=== PATIENT | female | born 1955 | race Two or more races ===

== ENCOUNTER → 2022-04-13 | Outpatient (CLI) | payer OTHER ==
[2022-04-13 12:47] LABS: Hematocrit 37.1 % (36.0-46.0); Hemoglobin 12.5 g/dL (12.2-16.2); Mean Corpuscular Hemoglobin 29.7 pg (28.0-32.0); Mean Corpuscular Hgb Conc. 33.6 g/dL (32.0-36.0); Mean Corpuscular Volume 88.2 fL (80.0-100.0); Red Cell Distribution Width 13.1 % (11.8-14.3)
[2022-04-13 12:56] LABS: Band Neutrophils % (manual) 0; Basophils % (manual) 0 (0.0-2.0); Blast Cells 0; Metamyelocytes % 0; Myelocytes % 0; Promyelocytes % 0; Reactive Lymphocytes 0
[2022-04-13 13:14] LABS: Albumin 3.6 g/dL (3.4-5.0); BUN/Creatinine Ratio 8.2; Calcium 9.1 mg/dL (8.5-10.1); Potassium 3.9 mmol/L (3.5-5.1)
[2022-04-13 13:17] LABS: Bilirubin, Total 0.3 mg/dL (0.2-1.0); Total Protein 7.6 g/dL (6.4-8.2)
[2022-04-13 14:37] LABS: Eosinophils % (manual) 1 (0-7); Lymphocytes % (manual) 77 (10.0-50.0); Monocytes % (manual) 6 (0-12)
== END | disposition home or self-care (01) ==
LOC: LAB 12:30
PROVIDERS: ATTEND Internal Medicine
DX: R10.0 Acute abdomen (principal)
CPT/HCPCS: 36415; 80053; 85007; 85027

== ENCOUNTER → 2022-04-20 | Outpatient (CLI) | payer OTHER ==
[2022-04-20 15:13] LABS: Cholesterol 231 mg/dL (< 200); HDL Cholesterol 47 mg/dL (40-59); LDL Cholesterol 163 mg/dL (< 100); Triglycerides 126 mg/dL (< 150)
== END | disposition home or self-care (01) ==
LOC: LAB 14:21
PROVIDERS: ATTEND Internal Medicine
DX: I10 Essential (primary) hypertension (principal)
CPT/HCPCS: 36415; 80061; 83036; 84439; 84443

== ENCOUNTER 2022-04-26 09:50 | Emergency (ER) | payer OTHER, MEDICAID ==
[~2022-04-26] VITALS: Ht 167.6 cm; Wt 60.0 kg
[2022-04-26 10:57] LABS: Hematocrit 37.5 % (36.0-46.0); Hemoglobin 12.7 g/dL (12.2-16.2); Mean Corpuscular Hemoglobin 30.2 pg (28.0-32.0); Mean Corpuscular Hgb Conc. 33.9 g/dL (32.0-36.0); Mean Corpuscular Volume 88.9 fL (80.0-100.0); Red Blood Cells 4.22 10^6/uL (4.0-5.20); Red Cell Distribution Width 13.6 % (11.8-14.3); White Blood Cell 4.6 10^3/uL (4.4-10.8)
[2022-04-26 11:02] LABS: Band Neutrophils % (manual) 0; Basophils % (manual) 0 (0.0-2.0); Blast Cells 0; Metamyelocytes % 0; Myelocytes % 0; Promyelocytes % 0; Reactive Lymphocytes 0
[2022-04-26 11:10] LABS: Albumin 3.6 g/dL (3.4-5.0); BUN/Creatinine Ratio 6.3; Calcium 9.5 mg/dL (8.5-10.1); Potassium 3.8 mmol/L (3.5-5.1)
[2022-04-26 11:13] LABS: Bilirubin, Total 0.3 mg/dL (0.2-1.0); Total Protein 8.1 g/dL (6.4-8.2)
[2022-04-26 12:19] LABS: Eosinophils % (manual) 2 (0-7); Lymphocytes % (manual) 65 (10.0-50.0); Monocytes % (manual) 3 (0-12)
[2022-04-26 17:08] VITALS: BP 178/76
[2022-04-26 17:39] LABS: Urine Bacteria FEW /hpf (None Seen); Urine Blood Negative /uL (Negative); Urine Hyaline Cast FEW /lpf (0 - 2); Urine Mucus FEW (None Seen); Urine Specific Gravity 1.023 (1.001-1.035); Urine WBC 6 /hpf (0 - 5)
== END 2022-04-26 17:10 | disposition home or self-care (01) ==
LOC: ER 09:50
DX: R10.31 Right lower quadrant pain (principal); I13.10 Hypertensive heart and chronic kidney disease without heart failure, with stage 1 through stage 4 chronic kidney disease, or unspecified chronic kidney disease; N18.30 Chronic kidney disease, stage 3 unspecified; Z88.6 Allergy status to analgesic agent; Z86.73 Personal history of transient ischemic attack (TIA), and cerebral infarction without residual deficits; Z98.51 Tubal ligation status
CPT/HCPCS: 36415; 74176; 80053; 81001; 85007; 85027

== ENCOUNTER → 2022-06-11 | Outpatient (CLI) | payer OTHER, MEDICAID ==
[~2022-06-11] MED LIST: NITR-87 PO; PERCOT PO
[2022-06-11 12:45] LABS: Calcium 9.7 mg/dL (8.5-10.1); Potassium 3.7 mmol/L (3.5-5.1)
[2022-06-11 12:47] LABS: BUN/Creatinine Ratio 6.8 (10.0-20.0)
[2022-06-11 12:50] LABS: Bilirubin, Total 0.5 mg/dL (0.2-1.0); Total Protein 8.3 g/dL (6.4-8.2)
== END | disposition home or self-care (01) ==
LOC: LAB 10:18
PROVIDERS: ATTEND Internal Medicine
DX: R94.4 Abnormal results of kidney function studies (principal); R94.6 Abnormal results of thyroid function studies
CPT/HCPCS: 36415; 80053; 84439; 84443

== ENCOUNTER 2022-06-13 15:52 | Emergency (ER) | payer OTHER, MEDICAID ==
[~2022-06-13] VITALS: Ht 167.6 cm; Wt 63.6 kg
[2022-06-13 18:12] LABS: Hematocrit 39.4 % (36.0-46.0); Hemoglobin 13.7 g/dL (12.2-16.2); Mean Corpuscular Hemoglobin 30.5 pg (28.0-32.0); Mean Corpuscular Hgb Conc. 34.7 g/dL (32.0-36.0); Mean Corpuscular Volume 87.8 fL (80.0-100.0); Red Blood Cells 4.49 10^6/uL (4.0-5.20); Red Cell Distribution Width 13.9 % (11.8-14.3); White Blood Cell 5.1 10^3/uL (4.4-10.8)
[2022-06-13 18:29] LABS: Band Neutrophils % (manual) 0; Basophils % (manual) 0 (0.0-2.0); Blast Cells 0; Metamyelocytes % 0; Myelocytes % 0; Promyelocytes % 0
[2022-06-13 18:30] LABS: Albumin 4.1 g/dL (3.4-5.0); Calcium 9.4 mg/dL (8.5-10.1); Potassium 3.7 mmol/L (3.5-5.1)
[2022-06-13 18:34] LABS: BUN/Creatinine Ratio 7.8 (10.0-20.0); Bilirubin, Total 0.5 mg/dL (0.2-1.0)
[2022-06-13 19:23] LABS: Eosinophils % (manual) 2 (0-7); Lymphocytes % (manual) 57 (10.0-50.0); Monocytes % (manual) 12 (0-12)
[2022-06-13 19:24] LABS: Reactive Lymphocytes 2
[2022-06-13 23:03] LABS: Urine Bacteria NONE SEEN /hpf (None Seen); Urine Blood Negative /uL (Negative); Urine Hyaline Cast FEW /lpf (0 - 2); Urine Mucus FEW (None Seen); Urine Specific Gravity 1.022 (1.001-1.035); Urine WBC 5 /hpf (0 - 5)
[2022-06-14] MEDS ORDERED: cefTRIAXone SOD 1,000 MG VL IM ONE (03:00)
[2022-06-14] MEDS ORDERED: OXYCODONE W/ ACETAMINOPHEN 5/325MG TABLET PO ONE (03:00)
[2022-06-14] MEDS ORDERED: PERCOT PO (03:04)
[2022-06-14] MEDS ORDERED: NITR-87 PO (03:04)
[2022-06-14 03:39] VITALS: BP 145/77
== END 2022-06-14 03:41 | disposition home or self-care (01) ==
LOC: EDBD 15:52 → ER 15:52
DX: R10.9 Unspecified abdominal pain (principal); N39.0 Urinary tract infection, site not specified; I12.9 Hypertensive chronic kidney disease with stage 1 through stage 4 chronic kidney disease, or unspecified chronic kidney disease; N18.9 Chronic kidney disease, unspecified; Z88.6 Allergy status to analgesic agent; Z86.73 Personal history of transient ischemic attack (TIA), and cerebral infarction without residual deficits; Z98.51 Tubal ligation status
CPT/HCPCS: 36415; 71045; 71250; 74176; 80053; 81001; 84484; 85007; 85027; 93005

== ENCOUNTER → 2022-06-29 | Outpatient (CLI) | payer OTHER, MEDICAID ==
[2022-06-29 09:50] LABS: Hematocrit 37.5 % (36.0-46.0); Hemoglobin 13.2 g/dL (12.2-16.2); Mean Corpuscular Hemoglobin 31.2 pg (28.0-32.0); Mean Corpuscular Hgb Conc. 35.3 g/dL (32.0-36.0); Mean Corpuscular Volume 88.3 fL (80.0-100.0); Red Blood Cells 4.24 10^6/uL (4.0-5.20); Red Cell Distribution Width 13.7 % (11.8-14.3); White Blood Cell 4.8 10^3/uL (4.4-10.8)
[2022-06-29 09:53] LABS: Basophils % (manual) 0 (0.0-2.0); Blast Cells 0; Metamyelocytes % 0; Myelocytes % 0; Promyelocytes % 0; Reactive Lymphocytes 0
[2022-06-29 10:29] LABS: Calcium 9.2 mg/dL (8.5-10.1); Magnesium 2.1 mg/dL (1.6-2.6); Potassium 3.7 mmol/L (3.5-5.1)
[2022-06-29 10:33] LABS: Band Neutrophils % (manual) 2; Eosinophils % (manual) 1 (0-7); Lymphocytes % (manual) 74 (10.0-50.0); Monocytes % (manual) 4 (0-12)
[2022-06-29 10:34] LABS: BUN/Creatinine Ratio 10.8 (10.0-20.0); Bilirubin, Total 0.7 mg/dL (0.2-1.0); Phosphorus 2.8 mg/dL (2.5-4.90); Total Protein 8.2 g/dL (6.4-8.2)
[2022-06-29 13:21] LABS: Urine Bacteria NONE SEEN /hpf (None Seen); Urine Blood Negative /uL (Negative); Urine Hyaline Cast MANY /lpf (0 - 2); Urine Mucus FEW (None Seen); Urine Specific Gravity 1.025 (1.001-1.035); Urine WBC 1 /hpf (0 - 5)
[2022-06-29 13:59] LABS: Protein, Urine 14.4 mg/dL (0.0-11.9)
== END | disposition home or self-care (01) ==
LOC: LAB 09:00
PROVIDERS: ATTEND Student in an Organized Health Care Education/Training Program
DX: N18.31 Chronic kidney disease, stage 3a (principal); R80.9 Proteinuria, unspecified; R82.90 Unspecified abnormal findings in urine; E61.2 Magnesium deficiency; E21.3 Hyperparathyroidism, unspecified; D63.1 Anemia in chronic kidney disease
CPT/HCPCS: 36415; 80053; 81001; 82306; 82570; 83735; 83970; 84100; 84156; 85007; 85027

== ENCOUNTER → 2022-09-20 | Outpatient (CLI) | payer OTHER, MEDICAID ==
[~2022-09-20] VITALS: Ht 167.6 cm; Wt 64.9 kg
[~2022-09-20] MED LIST changes: +ADENOSINE 54 MG in GIVE UN-DILUTED 0 ML IV ONE; +cloNIDine HCL 0.1 MG TAB ONE; +cloNIDine HCL 0.1 MG TAB PO ONE
== END | disposition home or self-care (01) ==
LOC: XYW 07:59
PROVIDERS: ATTEND Internal Medicine
DX: R07.89 Other chest pain (principal); R06.83 Snoring; R29.818 Other symptoms and signs involving the nervous system; R91.8 Other nonspecific abnormal finding of lung field; I10 Essential (primary) hypertension; E78.5 Hyperlipidemia, unspecified; E04.1 Nontoxic single thyroid nodule; Z88.8 Allergy status to other drugs, medicaments and biological substances
CPT/HCPCS: 78452; A9500; J0153

== ENCOUNTER → 2022-09-27 | Outpatient (CLI) | payer OTHER, MEDICAID ==
[~2022-09-27] MED LIST changes: -ADENOSINE 54 MG in GIVE UN-DILUTED 0 ML IV ONE; -cloNIDine HCL 0.1 MG TAB ONE; -cloNIDine HCL 0.1 MG TAB PO ONE
== END | disposition home or self-care (01) ==
LOC: XYW 10:43
PROVIDERS: ATTEND Internal Medicine
DX: R07.9 Chest pain, unspecified (principal); I08.2 Rheumatic disorders of both aortic and tricuspid valves; R07.89 Other chest pain
CPT/HCPCS: 93306

== ENCOUNTER → 2022-09-28 | Outpatient (CLI) | payer OTHER, MEDICAID ==
[2022-09-28 14:03] LABS: Basophils # (auto) 0 10 ^3/uL (0-0.2); Basophils % (auto) 1.1 % (0.0-2.0); Eosinophils # (auto) 0.1 10 ^3/uL (0-0.8); Eosinophils % (auto) 2.9 % (0.0-7.0); Hematocrit 39.3 % (36.0-46.0); Lymphocytes # (auto) 2.7 10 ^3/uL (0.4-5.4); Mean Corpuscular Hemoglobin 30.5 pg (28.0-32.0); Mean Corpuscular Hgb Conc. 33.1 g/dL (32.0-36.0); Mean Corpuscular Volume 92.1 fL (80.0-100.0); Monocytes # (auto) 0.4 10 ^3/uL (0-1.3); Monocytes % (auto) 8.7 % (0.0-12.0); Neutrophils # (auto) 1.1 10 ^3/uL (1.6-8.6); Neutrophils % (auto) 24.9 % (37.0-80.0); Nucleated Red Blood Cells % 0.2 %; Red Blood Cells 4.27 10^6/uL (4.0-5.20); Red Cell Distribution Width 13.7 % (11.8-14.3); White Blood Cell 4.3 10^3/uL (4.4-10.8)
[2022-09-28 14:10] LABS: Lymphocytes % (auto) 62.4 % (10.0-50.0)
[2022-09-28 15:01] LABS: Albumin 3.7 g/dL (3.4-5.0); Calcium 9.1 mg/dL (8.5-10.1); Magnesium 1.9 mg/dL (1.6-2.6); Potassium 3.6 mmol/L (3.5-5.1)
[2022-09-28 15:10] LABS: BUN/Creatinine Ratio 10.1 (10.0-20.0); Bilirubin, Total 0.4 mg/dL (0.2-1.0); Phosphorus 2.7 mg/dL (2.5-4.90); Total Protein 7.9 g/dL (6.4-8.2)
== END | disposition home or self-care (01) ==
LOC: LAB 13:44
PROVIDERS: ATTEND Student in an Organized Health Care Education/Training Program
DX: E11.22 Type 2 diabetes mellitus with diabetic chronic kidney disease (principal); N18.30 Chronic kidney disease, stage 3 unspecified; E11.21 Type 2 diabetes mellitus with diabetic nephropathy; D63.1 Anemia in chronic kidney disease; N39.0 Urinary tract infection, site not specified; R80.9 Proteinuria, unspecified; E21.3 Hyperparathyroidism, unspecified; M10.9 Gout, unspecified; E55.9 Vitamin D deficiency, unspecified
CPT/HCPCS: 36415; 80053; 83735; 83970; 84100; 85025; 85652

== ENCOUNTER → 2022-10-01 | Outpatient (CLI) | payer OTHER, MEDICAID ==
[~2022-10-01] VITALS: Ht 167.6 cm; Wt 64.9 kg
[~2022-10-01] MED LIST changes: +ADENOSINE 54 MG in GIVE UN-DILUTED 0 ML IV STA
[2022-10-01 08:28] VITALS: BP 132/68
== END | disposition home or self-care (01) ==
LOC: XYW 08:05
PROVIDERS: ATTEND Internal Medicine
DX: R07.89 Other chest pain (principal)
CPT/HCPCS: 78452; 93017; A9500; J0153

== ENCOUNTER 2022-10-31 07:03 | Day surgery (SDC) | payer OTHER, MEDICAID ==
[2022-10-30 10:43] LABS: Basophils # (auto) 0.1 10 ^3/uL (0-0.2); Basophils % (auto) 1.2 % (0.0-2.0); Eosinophils # (auto) 0.4 10 ^3/uL (0-0.8); Eosinophils % (auto) 8.3 % (0.0-7.0); Hematocrit 37.1 % (36.0-46.0); Hemoglobin 12.4 g/dL (12.2-16.2); Lymphocytes # (auto) 2.3 10 ^3/uL (0.4-5.4); Lymphocytes % (auto) 54.4 % (10.0-50.0); Mean Corpuscular Hemoglobin 30.5 pg (28.0-32.0); Mean Corpuscular Hgb Conc. 33.5 g/dL (32.0-36.0); Mean Corpuscular Volume 91.3 fL (80.0-100.0); Monocytes # (auto) 0.5 10 ^3/uL (0-1.3); Monocytes % (auto) 12.2 % (0.0-12.0); Neutrophils % (auto) 23.9 % (37.0-80.0); Nucleated Red Blood Cells % 0.3 %; Red Blood Cells 4.07 10^6/uL (4.0-5.20); Red Cell Distribution Width 13.5 % (11.8-14.3); White Blood Cell 4.3 10^3/uL (4.4-10.8)
[2022-10-30 11:49] LABS: INR 1.04 (0.9-1.15); Partial Thromboplastin Time 25.9 SEC (24.5-34.5); Prothrombin Time 10.9 sec (9.3-11.8)
[2022-10-30 12:25] LABS: Potassium 4.1 mmol/L (3.5-5.1)
[2022-10-30 12:38] LABS: Albumin 3.6 g/dL (3.4-5.0); BUN/Creatinine Ratio 10.3 (10.0-20.0); Bilirubin, Total 0.6 mg/dL (0.2-1.0); Calcium 8.9 mg/dL (8.5-10.1); Total Protein 7.7 g/dL (6.4-8.2)
[~2022-10-31] VITALS: Ht 167.6 cm; Wt 64.9 kg
[~2022-10-31 07:03] MED LIST changes: -ADENOSINE 54 MG in GIVE UN-DILUTED 0 ML IV STA
[2022-10-31] MEDS ORDERED: LIDOCAINE 2%HCL (LOCAL ANESTH.) INJ 20ML MDV ONE (07:18)
[2022-10-31] MEDS ORDERED: IODIXANOL 320MG/ML 100ML BTL IV ONE (07:19)
[2022-10-31] MEDS ORDERED: HYDR25TA5 PO (07:35)
[2022-10-31] MEDS ORDERED: HYDR-3682 PO (07:35)
[2022-10-31] MEDS ORDERED: TRAZ-181 PO (07:35)
[2022-10-31] MEDS ORDERED: ESCI10TA PO (07:35)
[2022-10-31] MEDS ORDERED: LOSA100T58 PO (07:35)
[2022-10-31] MEDS ORDERED: LURA80TA2 PO (07:35)
[2022-10-31] MEDS ORDERED: DONE5TAB80 PO (07:35)
[2022-10-31] MEDS ORDERED: [UNRECOGNIZED DRUG - CODE] PO (07:35)
[2022-10-31] MEDS ORDERED: HEPARIN SODIUM (PORCINE) 5000 UNITS/ML 1ML VIAL ONE (09:13)
[2022-10-31] MEDS ORDERED: ANGIOMAX 250 MG VIAL IV ONE (09:13)
[2022-10-31] MEDS ORDERED: VERAPAMIL 2.5MG/ML INJ 2ML VIAL IV ONE (09:13)
[2022-10-31] MEDS ORDERED: SODIUM CHL 0.9% 0 ML ONE (09:13)
[2022-10-31] MEDS ORDERED: MIDAZOLAM HCL 2MG/2ML 2ml VIAL (1mg/ml) ONE (09:13)
[2022-10-31] MEDS ORDERED: fentaNYL CITRATE 100 MCG/2 ML VL ONE (09:13)
== END 2022-10-31 11:57 | disposition home or self-care (01) ==
LOC: CATH 07:03
PROVIDERS: ATTEND Internal Medicine
DX: I20.9 Angina pectoris, unspecified (principal); I10 Essential (primary) hypertension; E78.5 Hyperlipidemia, unspecified; Z98.890 Other specified postprocedural states; Z79.899 Other long term (current) drug therapy
CPT/HCPCS: 36415; 80053; 85025; 85610; 85730; 93458; C1769; C1894; J1644; J2250; J3010; Q9967; 99152

== ENCOUNTER → 2022-11-29 | Outpatient (CLI) | payer OTHER, MEDICAID ==
[~2022-11-29] MED LIST changes: +DONE5TAB80 PO; +ESCI10TA PO; +HYDR-3682 PO; +HYDR25TA5 PO; +LOSA100T58 PO; +LURA80TA2 PO; +TRAZ-181 PO; +[UNRECOGNIZED DRUG - CODE] PO
[2022-11-29 09:21] LABS: Hematocrit 37.7 % (36.0-46.0); Hemoglobin 12.6 g/dL (12.2-16.2); Mean Corpuscular Hemoglobin 30.2 pg (28.0-32.0); Mean Corpuscular Hgb Conc. 33.3 g/dL (32.0-36.0); Mean Corpuscular Volume 90.9 fL (80.0-100.0); Red Blood Cells 4.15 10^6/uL (4.0-5.20); Red Cell Distribution Width 13.3 % (11.8-14.3); White Blood Cell 3.8 10^3/uL (4.4-10.8)
[2022-11-29 09:27] LABS: Band Neutrophils % (manual) 0; Basophils % (manual) 0 (0.0-2.0); Blast Cells 0; Metamyelocytes % 0; Myelocytes % 0; Promyelocytes % 0; Reactive Lymphocytes 0
[2022-11-29 09:46] LABS: Urine Bacteria NONE SEEN /hpf (None Seen); Urine Blood Negative /uL (Negative); Urine Clarity Clear (Clear); Urine Color Yellow (Yellow); Urine Mucus FEW (None Seen); Urine Protein, UAD TRACE (Negative); Urine Specific Gravity 1.029 (1.001-1.035); Urine Urobilinogen Normal (Negative); Urine WBC 4 /hpf (0 - 5)
[2022-11-29 10:22] LABS: Alanine Aminotransferase 28 U/L (7-40); Albumin 4.2 g/dL (3.2-4.8); Alkaline Phosphatase 152 U/L (46-116); Anion Gap 3.9 (5-15); Aspartate Aminotransferase 28 U/L (13-40); BUN/Creatinine Ratio 14.7 (10.0-20.0); Bilirubin, Total 0.2 mg/dL (0.2-1.0); Blood Urea Nitrogen 20 mg/dL (9-23); Calcium 9.3 mg/dL (8.5-10.1); Carbon Dioxide 27.1 mmol/L (20-30); Chloride 109 mmol/L (98-107); Glucose 72 mg/dL (74-106); Potassium 3.9 mmol/L (3.5-5.1); Sodium 140 mmol/L (136-145); Total Protein 7.1 g/dL (5.7-8.2)
[2022-11-29 10:28] LABS: Protein, Urine 23.1 mg/dL (0.0-11.9)
[2022-11-29 10:39] LABS: Creatinine, Urine 233.97 mg/dL (30.0-125.0); Urine Protein/Creatinine Ratio 0.1
[2022-11-29 12:28] LABS: Eosinophils % (manual) 5 (0-7); Lymphocytes % (manual) 67 (10.0-50.0); Monocytes % (manual) 3 (0-12)
[2022-11-29 12:29] LABS: Platelet Estimate Adequate
== END | disposition home or self-care (01) ==
LOC: LAB 08:53
PROVIDERS: ATTEND Student in an Organized Health Care Education/Training Program
DX: N18.31 Chronic kidney disease, stage 3a (principal); D63.1 Anemia in chronic kidney disease; R82.90 Unspecified abnormal findings in urine; R80.9 Proteinuria, unspecified
CPT/HCPCS: 36415; 80053; 81001; 82570; 83036; 84156; 85007; 85027

== ENCOUNTER → 2023-01-02 | Outpatient (CLI) | payer OTHER, MEDICAID ==
[2023-01-02 08:56] LABS: LDL Cholesterol 113 mg/dL (< 100); Triglycerides 107 mg/dL (< 150)
[2023-01-02 08:57] LABS: Creatine Kinase IFCC 257 U/L (34-145); HDL Cholesterol 51 mg/dL (40-59)
[2023-01-02 08:58] LABS: Cholesterol 184 mg/dL (< 200)
== END | disposition home or self-care (01) ==
LOC: LAB 08:15
PROVIDERS: ATTEND Internal Medicine
DX: I10 Essential (primary) hypertension (principal); E78.5 Hyperlipidemia, unspecified; R25.2 Cramp and spasm
CPT/HCPCS: 36415; 80061; 82550; 84443

== ENCOUNTER 2023-10-11 08:26 | Emergency (ER) | payer OTHER, MEDICAID ==
[~2023-10-11] VITALS: Ht 167.6 cm; Wt 69.6 kg
[~2023-10-11 08:26] MED LIST changes: +LOSA-535 PO; -LOSA100T58 PO
[2023-10-11 08:55] VITALS: PULSE 84; RESP 19; TEMP 97.9; O2SAT 100
[2023-10-11 09:26] LABS: Hematocrit 39.2 % (36.0-46.0); Hemoglobin 13.7 g/dL (12.2-16.2); Mean Corpuscular Hemoglobin 31.9 pg (28.0-32.0); Mean Corpuscular Volume 91.2 fL (80.0-100.0); Red Cell Distribution Width 13.8 % (11.8-14.3); White Blood Cell 3.7 10^3/uL (4.4-10.8)
[2023-10-11 09:30] LABS: Chloride 106 mmol/L (98-107); Potassium 4.1 mmol/L (3.5-5.1); Sodium 138 mmol/L (136-145)
[2023-10-11 09:31] LABS: Anion Gap 4 (5-15); Calcium 9.9 mg/dL (8.7-10.4); Carbon Dioxide 28 mmol/L (20-30)
[2023-10-11 09:36] LABS: Blood Urea Nitrogen 11 mg/dL (9-23); Glucose 96 mg/dL (74-106)
[2023-10-11 09:38] LABS: Band Neutrophils % (manual) 0; Basophils % (manual) 0 (0.0-2.0); Blast Cells 0; Metamyelocytes % 0; Myelocytes % 0; Promyelocytes % 0; Reactive Lymphocytes 0
[2023-10-11 12:09] LABS: Eosinophils % (manual) 3 (0-7); Lymphocytes % (manual) 67 (10.0-50.0); Monocytes % (manual) 6 (0-12); Platelet Estimate Adequate
[2023-10-11] MEDS: GABAPENTIN 100 MG CAP PO ONE (16:08)
[2023-10-11] MEDS ORDERED: BACL20TA PO (18:27)
[2023-10-11] MEDS: BACLOFEN 10 MG TAB PO ONE (18:32)
[2023-10-11 18:34] VITALS: BP 114/57; PULSE 80; RESP 14; O2SAT 99
== END 2023-10-11 18:34 | disposition home or self-care (01) ==
LOC: ER 08:28
DX: R60.0 Localized edema (principal); I12.9 Hypertensive chronic kidney disease with stage 1 through stage 4 chronic kidney disease, or unspecified chronic kidney disease; N18.9 Chronic kidney disease, unspecified; Z86.73 Personal history of transient ischemic attack (TIA), and cerebral infarction without residual deficits; Z98.51 Tubal ligation status; Z88.6 Allergy status to analgesic agent
CPT/HCPCS: 36415; 80048; 83880; 84484; 85007; 85027; 85379; 93970

== ENCOUNTER → 2023-11-07 | Outpatient (CLI) | payer OTHER, MEDICAID ==
[~2023-11-07] MED LIST changes: +BACL20TA PO
[2023-11-07 13:05] LABS: Basophils # (auto) 0.1 10 ^3/uL (0-0.2); Basophils % (auto) 1.2 % (0.0-2.0); Eosinophils # (auto) 0.2 10 ^3/uL (0-0.8); Eosinophils % (auto) 3.9 % (0.0-7.0); Hemoglobin 12.7 g/dL (12.2-16.2); Lymphocytes # (auto) 2.4 10 ^3/uL (0.4-5.4); Lymphocytes % (auto) 49.4 % (10.0-50.0); Mean Corpuscular Hemoglobin 30.6 pg (28.0-32.0); Mean Corpuscular Hgb Conc. 33.5 g/dL (32.0-36.0); Mean Corpuscular Volume 91.3 fL (80.0-100.0); Monocytes # (auto) 0.5 10 ^3/uL (0-1.3); Monocytes % (auto) 9.4 % (0.0-12.0); Neutrophils # (auto) 1.8 10 ^3/uL (1.6-8.6); Neutrophils % (auto) 36.1 % (37.0-80.0); Nucleated Red Blood Cells % 0.1 %; Red Blood Cells 4.17 10^6/uL (4.0-5.20); Red Cell Distribution Width 13.5 % (11.8-14.3); White Blood Cell 4.9 10^3/uL (4.4-10.8)
[2023-11-07 14:24] LABS: Alanine Aminotransferase 18 U/L (7-40); Albumin 4.3 g/dL (3.2-4.8); Alkaline Phosphatase 113 U/L (46-116); Anion Gap 4 (5-15); Aspartate Aminotransferase 30 U/L (13-40); BUN/Creatinine Ratio 8.7 (10.0-20.0); Bilirubin, Total 0.4 mg/dL (0.2-1.0); Blood Urea Nitrogen 11 mg/dL (9-23); Calcium 9.8 mg/dL (8.7-10.4); Carbon Dioxide 30 mmol/L (20-30); Chloride 104 mmol/L (98-107); Glucose 109 mg/dL (74-106); Potassium 3.5 mmol/L (3.5-5.1); Sodium 138 mmol/L (136-145); Total Protein 7.5 g/dL (5.7-8.2)
[2023-11-07 14:40] LABS: Erythrocyte Sedimentation Rate 28 mm/hr (0-20)
== END | disposition home or self-care (01) ==
LOC: LAB 12:51
PROVIDERS: ATTEND Student in an Organized Health Care Education/Training Program
DX: E11.22 Type 2 diabetes mellitus with diabetic chronic kidney disease (principal); N18.30 Chronic kidney disease, stage 3 unspecified; E11.21 Type 2 diabetes mellitus with diabetic nephropathy; N39.0 Urinary tract infection, site not specified; R80.9 Proteinuria, unspecified; E21.3 Hyperparathyroidism, unspecified; M10.9 Gout, unspecified; E55.9 Vitamin D deficiency, unspecified; D63.1 Anemia in chronic kidney disease
CPT/HCPCS: 36415; 80053; 82306; 85025; 85652

== ENCOUNTER → 2024-01-17 | Outpatient (CLI) | payer OTHER ==
[2024-01-17 09:14] LABS: Alanine Aminotransferase 22 U/L (7-40); Alkaline Phosphatase 103 U/L (46-116); Anion Gap 7 (5-15); BUN/Creatinine Ratio 8.1 (10.0-20.0); Blood Urea Nitrogen 12 mg/dL (9-23); Calcium 10.1 mg/dL (8.7-10.4); Carbon Dioxide 28 mmol/L (20-31); Chloride 104 mmol/L (98-107); Glucose 90 mg/dL (74-106); Potassium 3.8 mmol/L (3.5-5.1); Sodium 139 mmol/L (136-145); Triglycerides 150 mg/dL (< 150)
[2024-01-17 09:15] LABS: Albumin 4.3 g/dL (3.2-4.8); Aspartate Aminotransferase 30 U/L (13-40); CRP High Sensitivity 0.27 mg/dL (<1.0); Creatine Kinase IFCC 218 U/L (34-145); LDL Cholesterol 77 mg/dL (< 100)
[2024-01-17 09:16] LABS: Bilirubin, Total 0.4 mg/dL (0.2-1.0); Cholesterol 141 mg/dL (< 200); HDL Cholesterol 51 mg/dL (40-59); Total Protein 7.6 g/dL (5.7-8.2)
[2024-01-17 09:45] LABS: Erythrocyte Sedimentation Rate 17 mm/hr (0-20)
== END | disposition home or self-care (01) ==
LOC: LAB 08:07
PROVIDERS: ATTEND Internal Medicine
DX: E78.2 Mixed hyperlipidemia (principal); R74.8 Abnormal levels of other serum enzymes; I70.0 Atherosclerosis of aorta
CPT/HCPCS: 36415; 80053; 80061; 82550; 85652; 86141

== ENCOUNTER → 2024-02-07 | Outpatient (CLI) | payer OTHER, MEDICAID ==
[2024-02-07 10:21] LABS: Hematocrit 38.5 % (36.0-46.0); Hemoglobin 13.1 g/dL (12.2-16.2); Mean Corpuscular Hemoglobin 30.9 pg (28.0-32.0); Mean Corpuscular Hgb Conc. 34.1 g/dL (32.0-36.0); Mean Corpuscular Volume 90.7 fL (80.0-100.0); Platelet Count (auto) 207 10^3/uL (140-450); Red Blood Cells 4.25 10^6/uL (4.0-5.20); Red Cell Distribution Width 14.2 % (11.8-14.3); White Blood Cell 3.8 10^3/uL (4.4-10.8)
[2024-02-07 10:29] LABS: Basophils % (manual) 0 (0.0-2.0); Blast Cells 0; Metamyelocytes % 0; Myelocytes % 0; Promyelocytes % 0
[2024-02-07 11:01] LABS: Potassium 3.8 mmol/L (3.5-5.1)
[2024-02-07 11:02] LABS: Calcium 9.9 mg/dL (8.7-10.4)
[2024-02-07 11:04] LABS: Band Neutrophils % (manual) 1; Eosinophils % (manual) 4 (0-7); Lymphocytes % (manual) 61 (10.0-50.0); Monocytes % (manual) 11 (0-12); Platelet Estimate Adequate; RBC Morphology Normal; Reactive Lymphocytes 2
[2024-02-07 11:07] LABS: BUN/Creatinine Ratio 8.7 (10.0-20.0)
[2024-02-07 11:09] LABS: Albumin 4.4 g/dL (3.2-4.8); Phosphorus 3.6 mg/dL (2.4-5.1)
== END | disposition home or self-care (01) ==
LOC: LAB 09:30
PROVIDERS: ATTEND Student in an Organized Health Care Education/Training Program
DX: E11.21 Type 2 diabetes mellitus with diabetic nephropathy (principal); E21.3 Hyperparathyroidism, unspecified; N39.0 Urinary tract infection, site not specified; N18.30 Chronic kidney disease, stage 3 unspecified; E11.22 Type 2 diabetes mellitus with diabetic chronic kidney disease; R80.9 Proteinuria, unspecified; D63.1 Anemia in chronic kidney disease; E55.9 Vitamin D deficiency, unspecified; M10.9 Gout, unspecified
CPT/HCPCS: 36415; 80069; 82306; 84550; 85007; 85027

== ENCOUNTER 2024-04-20 09:59 | Emergency (ER) | payer OTHER, MEDICAID ==
[~2024-04-20] VITALS: Ht 167.6 cm; Wt 70.0 kg
[2024-04-20 10:35] LABS: Urine Amorphous Crystal FEW /hpf (None Seen); Urine Bacteria FEW /hpf (None Seen); Urine Blood Negative /uL (Negative); Urine Clarity Cloudy (Clear); Urine Color Yellow (Yellow); Urine Hyaline Cast MANY /lpf (0 - 2); Urine Mucus FEW (None Seen); Urine Protein, UAD 1+ (Negative); Urine Specific Gravity 1.017 (1.001-1.035); Urine Squamous Epithelial Cell FEW /hpf (<5); Urine Urobilinogen 2 mg/dL (Negative); Urine WBC 29 /HPF (0-5); Urine pH 5.5 (5.0-9.0)
[2024-04-20 11:08] VITALS: BP 121/55; PULSE 80; RESP 18; TEMP 97.9; O2SAT 100
--- NOTE | 2024-04-20 11:46 | DVH ---
CT ABDOMEN AND PELVIS WITHOUT CONTRAST CLINICAL HISTORY: UTI/retention x 1 day TECHNIQUE: Multiple contiguous axial images of the abdomen and pelvis without intravenous contrast. The images were reformatted degenerate coronal and sagittal reconstructions. All CT scans at this medical facility are performed using dose modulation techniques as appropriate t o a performed exam including the following:Automated exposure control was utilized; adjustment of the MA and/or KV according to patient size; and use of iterative reconstruction technique. Radiation Dose Information: CT Dose: CTDI volume is 8 mGy. Dose-length product is 425 mGy*cm Comparison: CT CHST AB PEL WO CON-NO IV/ORAL on DOS: 06/13/22, CT ABD PELVIS WO CONTRAST on DOS: 3 FINDINGS: Evaluation of the abdomen and pelvis is limited without intravenous contrast. There is a stable small calcification in the body of the pancreas which May relate to changes prior p ancreatitis. The liver, gallbladder, kidneys, adrenal glands, and spleen appear within normal limits. There is no gross evidence of abdominal lymphadenopathy. There is no free fluid or free air. The stomach grossly appears unremarkable. The small and large bowel loops demonstrate normal caliber and appear within normal limits. The abdominal aorta and IVC appear within normal limits. The bladder appears unremarkable for the degree of distention. Pelvic organ appears within normal bradshaw its. There is no gross evidence of a pelvic mass. There is no free fluid collection. Lung bases are clear. There is no acute osseous abnormality. IMPRESSION: 1. There is no acute process in the abdomen and pelvis. 2. Stable small calcification in the body of the pancreas May relate to changes of prior pancreatitis . HS:Y
[2024-04-20] MEDS: cefTRIAXone SOD 1,000 MG VL IM ONE (11:56)
[2024-04-20 12:01] LABS: Basophils # (auto) 0 10 ^3/uL (0-0.2); Basophils % (auto) 0.7 % (0.0-2.0); Eosinophils # (auto) 0.1 10 ^3/uL (0-0.8); Eosinophils % (auto) 2.6 % (0.0-7.0); Hematocrit 41.3 % (36.0-46.0); Hemoglobin 13.8 g/dL (12.2-16.2); Lymphocytes # (auto) 2.3 10 ^3/uL (0.4-5.4); Lymphocytes % (auto) 51.1 % (10.0-50.0); Mean Corpuscular Hemoglobin 30.2 pg (28.0-32.0); Mean Corpuscular Hgb Conc. 33.4 g/dL (32.0-36.0); Mean Corpuscular Volume 90.4 fL (80.0-100.0); Monocytes # (auto) 0.4 10 ^3/uL (0-1.3); Monocytes % (auto) 8.9 % (0.0-12.0); Neutrophils # (auto) 1.7 10 ^3/uL (1.6-8.6); Neutrophils % (auto) 36.7 % (37.0-80.0); Nucleated Red Blood Cells % 0.3 %; Platelet Count (auto) 228 10^3/uL (140-450); Red Blood Cells 4.57 10^6/uL (4.0-5.20); Red Cell Distribution Width 14.3 % (11.8-14.3); White Blood Cell 4.6 10^3/uL (4.4-10.8)
[2024-04-20 12:15] LABS: Chloride 102 mmol/L (98-107); Potassium 3.8 mmol/L (3.5-5.1); Sodium 139 mmol/L (136-145)
[2024-04-20 12:16] LABS: Anion Gap 7 (5-15); Calcium 10.3 mg/dL (8.7-10.4); Carbon Dioxide 30 mmol/L (20-31)
[2024-04-20 12:21] LABS: BUN/Creatinine Ratio 9.1 (10.0-20.0); Blood Urea Nitrogen 14 mg/dL (9-23); Glucose 104 mg/dL (74-106)
[2024-04-20] MEDS ORDERED: NITR-87 PO (12:32)
--- NOTE | 2024-04-20 12:32 | ED.PDOC ---
General HPI Comments 68-year-old with a history of end-stage renal disease and hypertension presents for UTI x2 days associated with lower back pain and intermittent fevers. Takes [id number] Tylenol with some improvement Denies hematuria, denies flank pain, denies nausea vomiting diarrhea Chief Complaint: Urinary Time Seen by MD: 10:28 Reviewed notes: Nurses Notes, Medications, Allergies Allergies: Coded Allergies: Ibuprofen (Verified Allergy, Unknown, 10/01/22) Statins (Verified Allergy, Unknown, 10/01/22) PER PATIENT Home Meds Active Scripts Nitrofurantoin Monohydrate Mac (Macrobid) 100 Mg Cap, 100 MG PO BID for 7 Days, #14 CAP 0 Refills Prov:WIFLREDO POLLARD CHILDBIRTH EDUCATOR 04/20/24 Baclofen (Baclofen) 20 Mg Tab, 20 MG PO TID PRN for 7 Days, #21 TAB Prov:WILLIAN LOVE MD 10/11/23 Oxycodone W/ Acetaminophen (Percocet 5/325MG) 1 Tab Tb, 1 TAB PO BID for 7 Days, #14 TAB Prov:MICH GO MD 06/14/22 Nitrofurantoin Monohydrate Mac (Macrobid) 100 Mg Cap, 100 MG PO BID for 7 Days, #14 CAP Prov:MICH GO MD 06/14/22 Reported Medications Trazodone HCl (Trazodone Hydrochloride) 50 Mg Tab, 50 MG PO HS, TAB 10/31/22 Donepezil Hydrochloride (DONEPEZIL HCL) 5 Mg Tab, 5 MG PO DAILY for 30 Days, MG 10/31/22 Ketoconazole (Ketoconazole) 200 Mg Tab, 200 MG PO EOD, TAB 10/31/22 Escitalopram Oxalate (Lexapro) 10 Mg Tab, 1 TAB PO DAILY, #30 TAB 1 Refill 10/31/22 Hydroxyzine Hcl (Hydroxyzine Hcl) 25 Mg Tab, 25 MG PO HS for 30 Days, MG 10/31/22 Hctz (Hydrochlorothiazide) 25 Mg Tab, 25 MG PO DAILY, TAB 10/31/22 Lurasidone Hcl (LATUDA) 80 Mg Tab, 120 MG PO DAILY, TAB 10/31/22 Losartan Potassium (Losartan Potassium) 100 Mg Tab, 1 TAB PO DAILY, #90 TAB 1 Refill 8/9/23 Information Source: Patient Mode of Arrival: Wheelchair Past Medical History PAST MEDICAL HISTORY: CKF, CVA, HTN Surgical History: Tubal Ligation MANAGER DATA History: Denies all MANAGER DATA Hx Family History Family History: Reviewed,noncontributory to illness Social History Smoker: Non-Smoker Alcohol: Denies ETOH Use Drugs: Denies Drug Use Lives In: Home All Other Systems: Reviewed and Negative (Per HPI) Physical Exam General Appearance: No Apparent Distress, Normal HEENT: Normal ENT Inspection, Pharynx Normal, TMs Normal Neck: Full Range of Motion, Non-Tender, Normal, Normal Inspection Respiratory: Chest Non-Tender, Lungs Clear, No Accessory Muscle Use, No Respiratory Distress, Normal Breath Sounds Cardiovascular: No Edema, No JVD, No Murmur, No Gallop, Normal Peripheral Pulses, Regular Rate/Rhythm Breast Exam: Deferred Gastrointestinal: No Organomegaly, Non Tender, No Pulsatile Mass, Normal Bowel Sounds, Soft Genitalia: Deferred Pelvic: Deferred Rectal: Deferred Extremities: No calf tenderness, Normal capillary refill, Normal inspection, Normal range of motion, Non-tender, No pedal edema Musculoskeletal : Apperance: Normal Neurologic: Alert, No Motor Deficits, Normal Affect, Normal Mood, No Sensory Deficits Cerebellar Function: Normal Reflexes: Normal Skin: Dry, Normal Color, Warm Lymphatic: No Adenopathy Was a procedure done? Was a procedure done?: No Images 1 - No midline tenderness on palpation. Localized bilateral lumbosacral tenderness to paraspinal muscles. Distal neuro sensation intact Differential Diagnosis Kidney stone (Female): AAA, Musculoskeletal pain, Pyelonephritis, Strain X-Ray, Labs, Meds, VS Vital Signs Date Time Temp Pulse Resp B/P (MAP) Pulse Ox O2 Delivery O2 Flow Rate FiO2 04/20/24 11:08 80 18 100 Room Air 04/20/24 11:08 97.9 80 18 121/55 (77) 100 97.9 04/20/24 10:17 97.9 80 18 121/55 (77) 100 Lab Test 04/20/24 11:23 04/20/24 10:16 Range/Units White Blood Count 4.6 4.4-10.8 10^3/uL Red Blood Count 4.57 4.0-5.20 10^6/uL Hemoglobin 13.8 12.2-16.2 g/dL Hematocrit 41.3 36.0-46.0 % Mean Corpuscular Volume 90.4 80.0-100.0 fL Mean Corpuscular Hemoglobin 30.2 28.0-32.0 pg Mean Corpuscular Hemoglobin Concent 33.4 32.0-36.0 g/dL Red Cell Distribution Width 14.3 11.8-14.3 % Platelet Count 228 140-450 10^3/uL Mean Platelet Volume 8.8 6.9-10.8 fL Neutrophils (%) (Auto) 36.7 L 37.0-80.0 % Lymphocytes (%) (Auto) 51.1 H 10.0-50.0 % Monocytes (%) (Auto) 8.9 0.0-12.0 % Eosinophils (%) (Auto) 2.6 0.0-7.0 % Basophils (%) (Auto) 0.7 0.0-2.0 % Neutrophils # (Auto) 1.7 1.6-8.6 10 ^3/uL Lymphocytes # (Auto) 2.3 0.4-5.4 10 ^3/uL Monocytes # (Auto) 0.4 0-1.3 10 ^3/uL Eosinophils # (Auto) 0.1 0-0.8 10 ^3/uL Basophils # (Auto) 0 0-0.2 10 ^3/uL Nucleated Red Blood Cells 0.3 % Sodium Level 139 136-145 mmol/L Potassium Level 3.8 3.5-5.1 mmol/L Chloride Level 102 98-107 mmol/L Carbon Dioxide Level 30 20-31 mmol/L Anion Gap 7 5-15 Blood Urea Nitrogen 14 9-23 mg/dL Creatinine 1.54 H 0.550-1.02 mg/dL Glomerular Filtration Rate Calc 36 >90 mL/min BUN/Creatinine Ratio 9.1 L 10.0-20.0 Serum Glucose 104 74-106 mg/dL Calcium Level 10.3 8.7-10.4 mg/dL Urine Color Yellow Yellow Urine Clarity Cloudy H Clear Urine pH 5.5 5.0-9.0 Urine Specific [place] 1.017 1.001-1.035 Urine Protein 1+ H Negative Urine Ketones Trace Negative Urine Blood Negative Negative /uL Urine Nitrite Negative Negative Urine Bilirubin Negative Negative Urine Urobilinogen 2 H Negative mg/dL Urine Leukocyte Esterase 3+ Negative /uL Urine RBC 3 0 - 4 /hpf Urine Microscopic WBC 29 H 0-5 /HPF Urine Squamous Epithelial Cells Few <5 /hpf Urine Amorphous Crystals Few None Seen /hpf Urine Bacteria Few H None Seen /hpf Urine Hyaline Casts Many 0 - 2 /lpf Urine Mucus Few None Seen Urine Glucose Normal Normal mg/dL Current Medications Medications (Trade) Dose Ordered Sig/Kevin Route Start Time Stop Time Status Last Admin Ceftriaxone Sodium (Rocephin) 1,000 mg ONCE ONCE IM 04/20/24 11:00 04/20/24 11:49 DC 04/20/24 11:56 PATIENT: GEO GAONA DACCT: [id number]: [id number] : 1955 LOC: ER ROOM / BED: / AGE / SEX: 68 / F ADM STATUS: REG ER SERVICE [id number] ORDERING PHYSICIAN: WILFREDO POLLARD NP PROCEDURE(s): ABPL - CT AB PEL WO CON-NO ORAL OR IV REASON: UTI/retention x 1 day ORDER NUMBER(s): [id number], ACCESSION NUMBER(s): [id number] CT ABDOMEN AND PELVIS WITHOUT CONTRAST CLINICAL HISTORY: UTI/retention x 1 day TECHNIQUE: Multiple contiguous axial images of the abdomen and pelvis without intravenous contrast. The images were reformatted degenerate coronal and sagittal reconstructions. All CT scans at this medical facility are performed using dose modulation techniques as appropriate to a performed exam including the following:Automated exposure control was utilized; adjustment of the MA and/or KV according to patient size; and use of iterative reconstruction technique. Radiation Dose Information: CT Dose: CTDI volume is 8 mGy. Dose-length product is 425 mGy*cm Comparison: CT CHST AB PEL WO CON-NO IV/ORAL on DOS: 06/13/22, CT ABD PELVIS WO CONTRAST on DOS: 04/26/22 FINDINGS: Evaluation of the abdomen and pelvis is limited without intravenous contrast. There is a stable small calcification in the body of the pancreas which May relate to changes prior pancreatitis. The liver, gallbladder, kidneys, adrenal glands, and spleen appear within normal limits. There is no gross evidence of abdominal lymphadenopathy. There is no free fluid or free air. The stomach grossly appears unremarkable. The small and large bowel loops demonstrate normal caliber and appear within normal limits. The abdominal aorta and IVC appear within normal limits. The bladder appears unremarkable for the degree of distention. Pelvic organ appears within normal limits. There is no gross evidence of a pelvic mass. There is no free fluid collection. Lung bases are clear. There is no acute osseous abnormality. IMPRESSION: 1. There is no acute process in the abdomen and pelvis. 2. Stable small calcification in the body of the pancreas May relate to changes of prior pancreatitis. HS:Y ATED BY: LEN JAMESON MD DICTATED DATE/TIME: 04/20/24 114 SIGNED BY: LEN JAMESON MD SIGNED DATE/TIME: 04/20/24 114 CC: X-Ray, Labs, Meds, VS Comment The patient presents with signs and symptoms that are consistent with a urinary tract infection. The urinalysis confirms the diagnosis. There does not appear to be any signs or symptoms of pyelonephritis or sepsis. In the ED, the patient was treated with Ceftriaxone The patient was overall well appearing and safe for discharge home. Able to tolerate PO. Prescriptions for antibiotics given. The patient is instructed to follow up with primary care physician. Return precautions to the ED discussed. Differentials considered but not limited to vulvovaginitis, STDs, pyelonephritis, renal stone. The patient was tolerating p.o., no previous belly surgeries, and having bowel movements so obstruction much less likely. Pain was not out of proportion so less likely ischemic bowel. No infectious symptoms to suggest infectious abdominal pathology. No bloody stools to suggest inflammatory bowel disease. Rx: Macrobid On reevaluation, patient had symptomatic improvement. Patient is stable for discharge at this time. External notes reviewed. Test results and diagnostic imaging interpreted. All diagnostic findings, discharge care, education and instructions provided Follow-up with PCP in 2 to 3 days Patient verbalized understanding and agreed to treatment plan Vital signs stable, afebrile, no acute distress noted Patient ambulatory with strong steady gait Advised to return precautions for any new or worsening symptoms, return to ER immediately for re-evaluation Patient is aware that the purpose of this visit was for an acute medical emergency requiring emergent stabilization. Chronic conditions, including malignancies have not been ruled out. Patient is instructed to follow up with PCP as directed and discharge instructions for continued care and workup. If unable to arrange follow-up, patient is to return to the emergency department for reassessment. Patient (parent or legal guardian if applicable) was given verbal and written discharge instructions and acknowledges understanding. Time of 1ST Reevaluation: 12:15 Reevaluation 1ST: Improved Patient Education/Counseling: Diagnosis, Treatment Family Education/Counseling: Diagnosis, Treatment Departure 1 Departure Time of Disposition: 12:31 Impression: Primary Impression: UTI (urinary tract infection) Qualified Codes: N30.01 - Acute cystitis with hematuria Disposition: HOME / SELF CARE / HOMELESS Condition: Fair e-Prescriptions Nitrofurantoin Monohydrate Mac (Macrobid) 100 Mg Cap 100 MG PO BID for 7 Days, #14 CAP 0 Refills Prov: WILFREDO POLLARD NP 04/20/24 Critical Care Note Critical Care Time?: No Stability Stability form required: No Heart Score Heart Score: Heart Score Response (Comments) Value History N/A 0 EKG N/A 0 Age N/A 0 Risk Factors N/A 0 Troponin N/A 0 Total 0 WILFREDO POLLARD NP Apr 20, 2024 12:32
== END 2024-04-20 12:38 | disposition home or self-care (01) ==
LOC: ER 09:59
DX: N39.0 Urinary tract infection, site not specified (principal); I12.0 Hypertensive chronic kidney disease with stage 5 chronic kidney disease or end stage renal disease; N18.6 End stage renal disease; Z79.899 Other long term (current) drug therapy; Z87.440 Personal history of urinary (tract) infections; Z98.51 Tubal ligation status; Z88.6 Allergy status to analgesic agent; Z88.8 Allergy status to other drugs, medicaments and biological substances
CPT/HCPCS: 36415; 74176; 80048; 81001; 85025; 96372; 99285; J0696

== ENCOUNTER → 2024-05-06 | Outpatient (CLI) | payer OTHER, MEDICAID ==
[2024-05-06 09:05] LABS: Hematocrit 38.5 % (36.0-46.0); Mean Corpuscular Hemoglobin 30.5 pg (28.0-32.0); Mean Corpuscular Hgb Conc. 33.7 g/dL (32.0-36.0); Mean Corpuscular Volume 90.4 fL (80.0-100.0); Platelet Count (auto) 208 10^3/uL (140-450); Red Blood Cells 4.26 10^6/uL (4.0-5.20); Red Cell Distribution Width 14.2 % (11.8-14.3); White Blood Cell 4.5 10^3/uL (4.4-10.8)
[2024-05-06 09:10] LABS: Basophils % (manual) 0 (0.0-2.0); Blast Cells 0; Metamyelocytes % 0; Myelocytes % 0; Promyelocytes % 0; Reactive Lymphocytes 0
[2024-05-06 11:55] LABS: Alanine Aminotransferase 24 U/L (7-40); Anion Gap 8 (5-15); BUN/Creatinine Ratio 9.9 (10.0-20.0); Blood Urea Nitrogen 14 mg/dL (9-23); Calcium 10.1 mg/dL (8.7-10.4); Carbon Dioxide 28 mmol/L (20-31); Chloride 102 mmol/L (98-107); Glucose 102 mg/dL (74-106); Potassium 3.8 mmol/L (3.5-5.1); Sodium 138 mmol/L (136-145)
[2024-05-06 11:57] LABS: Albumin 4.4 g/dL (3.2-4.8); Aspartate Aminotransferase 34 U/L (13-40)
[2024-05-06 11:58] LABS: Bilirubin, Total 0.5 mg/dL (0.2-1.0); Total Protein 7.2 g/dL (5.7-8.2)
[2024-05-06 12:24] LABS: Band Neutrophils % (manual) 3; Eosinophils % (manual) 2 (0-7); Lymphocytes % (manual) 54 (10.0-50.0); Monocytes % (manual) 2 (0-12); Platelet Estimate Adequate
[2024-05-06 13:07] LABS: Alkaline Phosphatase 92 U/L (46-116)
[2024-05-06 13:43] LABS: Triglycerides 105 mg/dL (< 150)
[2024-05-06 13:44] LABS: Cholesterol 132 mg/dL (< 200); LDL Cholesterol 77 mg/dL (< 100)
[2024-05-06 13:45] LABS: HDL Cholesterol 47 mg/dL (40-59)
== END | disposition home or self-care (01) ==
LOC: LAB 08:26
PROVIDERS: ATTEND Internal Medicine
DX: Z00.01 Encounter for general adult medical examination with abnormal findings (principal); I12.9 Hypertensive chronic kidney disease with stage 1 through stage 4 chronic kidney disease, or unspecified chronic kidney disease; E11.22 Type 2 diabetes mellitus with diabetic chronic kidney disease; E11.21 Type 2 diabetes mellitus with diabetic nephropathy; N18.30 Chronic kidney disease, stage 3 unspecified; D63.1 Anemia in chronic kidney disease; N39.0 Urinary tract infection, site not specified; E55.9 Vitamin D deficiency, unspecified; E78.2 Mixed hyperlipidemia; E21.3 Hyperparathyroidism, unspecified; M10.9 Gout, unspecified; R80.9 Proteinuria, unspecified
CPT/HCPCS: 36415; 80053; 80061; 83036; 84439; 84443; 85007; 85027

== ENCOUNTER → 2024-07-08 | Outpatient (CLI) | payer OTHER, MEDICAID ==
[2024-07-08 08:26] LABS: Hematocrit 41.5 % (36.0-46.0); Hemoglobin 13.7 g/dL (12.2-16.2); Mean Corpuscular Hemoglobin 30.4 pg (28.0-32.0); Mean Corpuscular Volume 92.1 fL (80.0-100.0); Platelet Count (auto) 170 10^3/uL (140-450); Red Cell Distribution Width 13.8 % (11.8-14.3); White Blood Cell 3.7 10^3/uL (4.4-10.8)
[2024-07-08 08:44] LABS: Alanine Aminotransferase 28 U/L (7-40); Anion Gap 9 (5-15); Aspartate Aminotransferase 35 U/L (13-40); BUN/Creatinine Ratio 9.8 (10.0-20.0); Bilirubin, Total 0.5 mg/dL (0.2-1.0); Blood Urea Nitrogen 14 mg/dL (9-23); Carbon Dioxide 27 mmol/L (20-31); Chloride 104 mmol/L (98-107); Glucose 95 mg/dL (74-106); Sodium 140 mmol/L (136-145); Total Protein 8.2 g/dL (5.7-8.2)
[2024-07-08 08:45] LABS: Albumin 4.9 g/dL (3.2-4.8); Alkaline Phosphatase 140 U/L (46-116); Calcium 10.5 mg/dL (8.7-10.4)
[2024-07-08 08:54] LABS: Band Neutrophils % (manual) 0; Basophils % (manual) 0 (0.0-2.0); Blast Cells 0; Metamyelocytes % 0; Myelocytes % 0; Promyelocytes % 0; Reactive Lymphocytes 0
[2024-07-08 09:39] LABS: Eosinophils % (manual) 3 (0-7); Lymphocytes % (manual) 63 (10.0-50.0); Monocytes % (manual) 8 (0-12); Platelet Estimate Adequate
[2024-07-09 15:27] LABS: Urine Bacteria None Seen /hpf (None Seen)
[2024-07-09 15:36] LABS: Urine Blood Negative /uL (Negative); Urine Clarity Clear (Clear); Urine Color Colorless (Yellow); Urine Protein, UAD Negative (Negative); Urine Specific Gravity 1.009 (1.001-1.035); Urine Squamous Epithelial Cell None Seen /hpf (<5); Urine Urobilinogen Normal (Negative); Urine WBC < 1 /HPF (0-5); Urine pH 7.5 (5.0-9.0)
[2024-07-09 16:16] LABS: Creatinine, Urine 36.86 mg/dL (30.0-125.0); Urine Protein/Creatinine Ratio 0.16
[2024-07-09 16:19] LABS: Protein, Urine < 6.0 mg/dL (1-14)
== END | disposition home or self-care (01) ==
LOC: LAB 08:00
PROVIDERS: ATTEND Student in an Organized Health Care Education/Training Program
DX: E11.22 Type 2 diabetes mellitus with diabetic chronic kidney disease (principal); N18.30 Chronic kidney disease, stage 3 unspecified; E11.21 Type 2 diabetes mellitus with diabetic nephropathy; E21.3 Hyperparathyroidism, unspecified; E55.9 Vitamin D deficiency, unspecified; M10.9 Gout, unspecified; N39.0 Urinary tract infection, site not specified; R80.9 Proteinuria, unspecified; D63.1 Anemia in chronic kidney disease
CPT/HCPCS: 36415; 80053; 81001; 82306; 82570; 84156; 85007; 85027

== ENCOUNTER → 2024-08-11 | Outpatient (CLI) | payer OTHER, MEDICAID ==
[2024-08-11 15:34] LABS: Alanine Aminotransferase 33 U/L (7-40); Albumin 4.5 g/dL (3.2-4.8); Anion Gap 7 (5-15); Aspartate Aminotransferase 40 U/L (13-40); BUN/Creatinine Ratio 13.1 (10.0-20.0); Blood Urea Nitrogen 18 mg/dL (9-23); Calcium 10.2 mg/dL (8.7-10.4); Carbon Dioxide 29 mmol/L (20-31); Chloride 103 mmol/L (98-107); Glucose 91 mg/dL (74-106); Potassium 4.7 mmol/L (3.5-5.1); Sodium 139 mmol/L (136-145); Total Protein 7.5 g/dL (5.7-8.2)
[2024-08-11 15:36] LABS: Alkaline Phosphatase 169 U/L (46-116); Bilirubin, Total 0.3 mg/dL (0.2-1.0); Creatine Kinase IFCC 313 U/L (34-145)
== END | disposition home or self-care (01) ==
LOC: LAB 14:52
PROVIDERS: ATTEND Internal Medicine
DX: R25.2 Cramp and spasm (principal)
CPT/HCPCS: 36415; 80053; 82550

== ENCOUNTER 2024-09-01 07:41 | Outpatient (CLI) | payer OTHER, MEDICAID | END 2024-09-01 17:00 | disposition home or self-care (01) | LOC: LAB 07:41 | PROVIDERS: ATTEND Internal Medicine | DX: N18.32 Chronic kidney disease, stage 3b (principal) | CPT/HCPCS: 36415; 82550 ==

== ENCOUNTER → 2024-11-27 | Outpatient (CLI) | payer OTHER, MEDICAID ==
[2024-11-27 11:01] LABS: Hematocrit 41.5 % (36.0-46.0); Hemoglobin 14.2 g/dL (12.2-16.2); Mean Corpuscular Hemoglobin 31.9 pg (28.0-32.0); Mean Corpuscular Volume 93.2 fL (80.0-100.0); Nucleated Red Blood Cells % 0.3 %
[2024-11-27 11:36] LABS: Alanine Aminotransferase 40 U/L (7-40); Albumin 4.6 g/dL (3.2-4.8); Anion Gap 8 (5-15); BUN/Creatinine Ratio 11.9 (10.0-20.0); Blood Urea Nitrogen 18 mg/dL (9-23); Calcium 9.8 mg/dL (8.7-10.4); Chloride 102 mmol/L (98-107); Glucose 86 mg/dL (74-106); Potassium 4.3 mmol/L (3.5-5.1); Sodium 142 mmol/L (136-145); Total Protein 7.8 g/dL (5.7-8.2)
[2024-11-27 11:37] LABS: Alkaline Phosphatase 125 U/L (46-116); Bilirubin, Total 0.4 mg/dL (0.2-1.0); Carbon Dioxide 32 mmol/L (20-31)
== END | disposition home or self-care (01) ==
LOC: LAB 10:02
PROVIDERS: ATTEND Internal Medicine
DX: I12.9 Hypertensive chronic kidney disease with stage 1 through stage 4 chronic kidney disease, or unspecified chronic kidney disease (principal); N18.32 Chronic kidney disease, stage 3b; E83.52 Hypercalcemia
CPT/HCPCS: 36415; 80053; 85025

== ENCOUNTER 2024-12-16 11:13 | Outpatient (CLI) | payer OTHER, MEDICAID ==
[2024-12-16 14:41] LABS: Alanine Aminotransferase 37 U/L (7-40); Albumin 4.4 g/dL (3.2-4.8); Alkaline Phosphatase 115 U/L (46-116); Anion Gap 8 (5-15); BUN/Creatinine Ratio 10.0 (10.0-20.0); Blood Urea Nitrogen 14 mg/dL (9-23); Calcium 9.6 mg/dL (8.7-10.4); Carbon Dioxide 31 mmol/L (20-31); Chloride 100 mmol/L (98-107); Glucose 79 mg/dL (74-106); Potassium 4.2 mmol/L (3.5-5.1); Sodium 139 mmol/L (136-145); Total Protein 7.6 g/dL (5.7-8.2)
[2024-12-16 14:42] LABS: Bilirubin, Total 0.3 mg/dL (0.2-1.0); Creatine Kinase IFCC 157 U/L (34-145)
== END 2024-12-16 17:00 | disposition home or self-care (01) ==
LOC: LAB 11:13
PROVIDERS: ATTEND Internal Medicine
DX: I12.9 Hypertensive chronic kidney disease with stage 1 through stage 4 chronic kidney disease, or unspecified chronic kidney disease (principal); N18.32 Chronic kidney disease, stage 3b; I73.9 Peripheral vascular disease, unspecified; R74.8 Abnormal levels of other serum enzymes; R25.2 Cramp and spasm
CPT/HCPCS: 36415; 80053; 82550

== ENCOUNTER → 2025-01-07 | Outpatient (CLI) | payer OTHER, MEDICAID ==
[2025-01-07 09:19] LABS: Hematocrit 42.0 % (36.0-46.0); Hemoglobin 14.0 g/dL (12.2-16.2); Mean Corpuscular Hemoglobin 31.1 pg (28.0-32.0); Mean Corpuscular Volume 93.5 fL (80.0-100.0); Nucleated Red Blood Cells % 0.0 %
[2025-01-07 09:45] LABS: Alanine Aminotransferase 28 U/L (7-40); Albumin 4.6 g/dL (3.2-4.8); Anion Gap 8 (5-15); BUN/Creatinine Ratio 10.4 (10.0-20.0); Bilirubin, Total 0.4 mg/dL (0.2-1.0); Blood Urea Nitrogen 16 mg/dL (9-23); Calcium 9.5 mg/dL (8.7-10.4); Carbon Dioxide 30 mmol/L (20-31); Chloride 101 mmol/L (98-107); Glucose 84 mg/dL (74-106); Potassium 4.5 mmol/L (3.5-5.1); Sodium 139 mmol/L (136-145); Total Protein 7.9 g/dL (5.7-8.2)
[2025-01-07 09:47] LABS: Alkaline Phosphatase 130 U/L (46-116)
[2025-01-08 13:29] LABS: Urine Protein, UAD Negative (Negative)
[2025-01-08 13:42] LABS: Protein, Urine 8.0 mg/dL (1-14)
== END | disposition home or self-care (01) ==
LOC: LAB 08:48
PROVIDERS: ATTEND Student in an Organized Health Care Education/Training Program
DX: E11.22 Type 2 diabetes mellitus with diabetic chronic kidney disease (principal); N18.30 Chronic kidney disease, stage 3 unspecified; E11.21 Type 2 diabetes mellitus with diabetic nephropathy; N39.0 Urinary tract infection, site not specified; R80.9 Proteinuria, unspecified; E21.3 Hyperparathyroidism, unspecified; M10.9 Gout, unspecified; E55.9 Vitamin D deficiency, unspecified; D63.1 Anemia in chronic kidney disease
CPT/HCPCS: 36415; 80053; 81001; 82306; 82570; 83970; 84155; 84156; 84165; 85025

== ENCOUNTER 2025-01-12 10:08 | Outpatient (CLI) | payer OTHER, MEDICAID ==
[2025-01-12 10:59] LABS: Hematocrit 43.0 % (36.0-46.0); Hemoglobin 14.5 g/dL (12.2-16.2); Mean Corpuscular Hemoglobin 31.3 pg (28.0-32.0); Mean Corpuscular Volume 93.2 fL (80.0-100.0); Nucleated Red Blood Cells % 0.1 %
[2025-01-12 11:15] LABS: INR 0.97 (0.9-1.15); Partial Thromboplastin Time 25.5 SEC (24.5-34.5); Prothrombin Time 10.3 sec (9.3-11.8)
[2025-01-13] MEDS ORDERED: ARIP20TA4 PO (15:49)
[2025-01-13] MEDS ORDERED: AMLO1TAB23 PO (15:49)
[2025-01-13] MEDS ORDERED: SERT-375 PO (15:49)
[2025-01-13] MEDS ORDERED: LATA0.008 EACHEYE (15:49)
[2025-01-13] MEDS ORDERED: DULO1CAP5 PO (15:49)
[2025-01-13] MEDS ORDERED: MONT-8 PO (15:49)
[2025-01-13] MEDS ORDERED: BACL10TA PO (15:49)
[2025-01-13] MEDS ORDERED: EZET-10 PO (15:49)
[2025-01-13] MEDS ORDERED: EVOL140I SC (15:49)
[2025-01-13] MEDS ORDERED: SUVO1TAB2 PO (15:49)
== END 2025-01-12 17:00 | disposition home or self-care (01) ==
LOC: LAB 10:08
PROVIDERS: ATTEND Internal Medicine
DX: I12.9 Hypertensive chronic kidney disease with stage 1 through stage 4 chronic kidney disease, or unspecified chronic kidney disease (principal); N18.32 Chronic kidney disease, stage 3b; R74.8 Abnormal levels of other serum enzymes; R79.89 Other specified abnormal findings of blood chemistry; Z79.01 Long term (current) use of anticoagulants
CPT/HCPCS: 36415; 85025; 85610; 85730

== ENCOUNTER → 2025-01-13 | Outpatient (CLI) | payer OTHER, MEDICAID ==
[~2025-01-13] MED LIST changes: +AMLO1TAB23 PO; +ARIP20TA4 PO; +BACL10TA PO; +DULO1CAP5 PO; +EVOL140I SC; +EZET-10 PO; +LATA0.008 EACHEYE; +MONT-8 PO; +SERT-375 PO; +SUVO1TAB2 PO
[2025-01-13 14:45] LABS: Chloride 101 mmol/L (98-107); Potassium 4.3 mmol/L (3.5-5.1); Sodium 140 mmol/L (136-145)
[2025-01-13 14:47] LABS: Anion Gap 9 (5-15); Calcium 9.4 mg/dL (8.7-10.4); Carbon Dioxide 30 mmol/L (20-31)
[2025-01-13 14:52] LABS: BUN/Creatinine Ratio 11.2 (10.0-20.0); Blood Urea Nitrogen 17 mg/dL (9-23); Glucose 99 mg/dL (74-106)
== END | disposition home or self-care (01) ==
LOC: LAB 13:59
PROVIDERS: ATTEND Internal Medicine
DX: I12.9 Hypertensive chronic kidney disease with stage 1 through stage 4 chronic kidney disease, or unspecified chronic kidney disease (principal); N18.9 Chronic kidney disease, unspecified
CPT/HCPCS: 36415; 80048

== ENCOUNTER 2025-01-15 08:10 | Outpatient (CLI) | payer OTHER, MEDICAID ==
[2025-01-15] VITALS (7 sets, daily range): BP systolic 106–133; BP diastolic 50–76; PULSE 71–84; RESP 11–15; O2SAT 96–99
[~2025-01-15] VITALS: Ht 165.1 cm; Wt 74.8 kg
[~2025-01-15 08:10] MED LIST changes: -BACL20TA PO; -ESCI10TA PO; -HYDR-3682 PO; -HYDR25TA5 PO; -LURA80TA2 PO; -NITR-87 PO; -PERCOT PO; -[UNRECOGNIZED DRUG - CODE] PO
[2025-01-15] MEDS ORDERED: LIDOCAINE 2%HCL (LOCAL ANESTH.) INJ 20ML MDV ONE (10:06)
[2025-01-15] MEDS ORDERED: MIDAZOLAM HCL 2MG/2ML 2ml VIAL (1mg/ml) ONE (10:09)
[2025-01-15] MEDS ORDERED: fentaNYL CITRATE 100 MCG/2 ML VL ONE (10:09)
[2025-01-15] MEDS ORDERED: IODIXANOL 320MG/ML 100ML BTL IV ONE (10:37)
--- NOTE | 2025-01-15 12:38 | DVH ---
XY AORTAGRAM W/RUNOFF, HISTORY: Bilateral lower extremity cramping, pain when walking, rest pain despite medications and samy nosis seen on prior ultrasound here for bilateral lower extremity angiogram with possible interventio n. PROCEDURE: Informed consent was obtained. The patient was placed on the fluoroscopic table in supine position. The right groin was prepped with chlorhexadine which was allowed to dry and draped in steri le fashion. Time out was performed. IV sedation and 1% Lidocaine were administered. The right common femoral artery was accessed using a micropuncture set and over a guide wire a 6 Fr sheath was placed. An ipsilateral right lower extremity run off angiogram was performed through the sheath. Next, a pig tail catheter was placed into the aorta. An aortogram was performed. A rim catheter and wire were use d to access the contralateral common femoral artery. A left lower extremity run off angiogram was per formed. The catheter was removed and Angioseal device was used for hemostasis. No immediate complica tion was identified. DAP 422 FLUOROSCOPY TIME: 3.6 minutes. CONTRAST USED: 50 mL SEDATION: Dr. Alexis Schaefer was personally responsible for the administration of moderate sedation during the procedure performed, including the use of an independent trained observer who had no other duties during the procedure. The drugs utilized were IV fentanyl and versed (see nursing log for details). The total time of supervision by the attending physician was approximately 45 minutes. FINDINGS: Aortogram show no stenosis visualized of the aorta, iliac arteries bilaterally. A moderate short segment 50% stenosis is visualized in the mid segment of the right superficial femoral artery. No stenosis is seen in the left femoral or popliteal arteries. 3 vessel run off is seen towards the l eft and right calf. IMPRESSION: A moderate short segment 50% stenosis is visualized in the mid segment of the right superficial femor al artery. This was not intervened upon as it did not appear flow limiting. Aortogram show no stenosis visualized of the aorta, iliac arteries bilaterally. No stenosis is seen in the left femoral or popliteal arteries. 3 vessel run off is seen towards the left and right calf. Recommend follow up US of the right lower arterial extremity in 6 months.
--- NOTE | 2025-01-18 08:17 | ECG ---
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
== END 2025-01-15 17:00 | disposition home or self-care (01) ==
LOC: CATH 08:10
PROVIDERS: ATTEND Radiology Diagnostic Radiology
DX: I70.211 Atherosclerosis of native arteries of extremities with intermittent claudication, right leg (principal); I70.221 Atherosclerosis of native arteries of extremities with rest pain, right leg; I12.9 Hypertensive chronic kidney disease with stage 1 through stage 4 chronic kidney disease, or unspecified chronic kidney disease; N18.32 Chronic kidney disease, stage 3b
CPT/HCPCS: 36246; 75630; 75716; 93005; C1760; C1769; C1887; C1894; J1644; J2250; J3010; Q9967; 99152

== ENCOUNTER 2025-02-08 09:29 | Outpatient (CLI) | payer OTHER, MEDICAID ==
[2025-02-08 10:16] LABS: Hematocrit 44.3 % (36.0-46.0); Hemoglobin 14.9 g/dL (12.2-16.2); Mean Corpuscular Hemoglobin 31.3 pg (28.0-32.0); Mean Corpuscular Volume 93.0 fL (80.0-100.0); Nucleated Red Blood Cells % 0.0 %
[2025-02-08 10:18] LABS: Urine Protein, UAD Negative (Negative)
[2025-02-08 11:02] LABS: Chloride 98.0 mmol/L (98-107); Potassium 4.0 mmol/L (3.5-5.1); Sodium 138.0 mmol/L (136-145)
[2025-02-08 11:03] LABS: Anion Gap 10.0 (5-15); Calcium 9.8 mg/dL (8.7-10.4); Carbon Dioxide 30.0 mmol/L (20-31)
[2025-02-08 11:08] LABS: BUN/Creatinine Ratio 10.7 (10.0-20.0); Blood Urea Nitrogen 16.0 mg/dL (9-23); Glucose 95.0 mg/dL (74-106)
[2025-02-08 11:10] LABS: Albumin 4.7 g/dL (3.2-4.8)
[2025-02-08 11:13] LABS: Protein, Urine < 6.0 mg/dL (1-14)
[2025-02-08 11:55] LABS: Uric Acid 4.0 mg/dL (3.1-7.8)
== END 2025-02-08 17:00 | disposition home or self-care (01) ==
LOC: LAB 09:29
PROVIDERS: ATTEND Student in an Organized Health Care Education/Training Program
DX: E11.22 Type 2 diabetes mellitus with diabetic chronic kidney disease (principal); N18.30 Chronic kidney disease, stage 3 unspecified; E11.21 Type 2 diabetes mellitus with diabetic nephropathy; E21.3 Hyperparathyroidism, unspecified; E55.9 Vitamin D deficiency, unspecified; D63.1 Anemia in chronic kidney disease; N39.0 Urinary tract infection, site not specified; M10.9 Gout, unspecified; R80.9 Proteinuria, unspecified
CPT/HCPCS: 36415; 80069; 81001; 82306; 82570; 84156; 84550; 85025